=== PATIENT | female | born 1975 | race Caucasian/White ===

== ENCOUNTER 2016-02-18 19:04 | Emergency (ER) | payer MEDICAID, OTHER ==
[~2016-02-18] VITALS: Ht 175.3 cm; Wt 80.0 kg
[~2016-02-18 19:04] MED LIST: BUSP10TA8 PO; IBUP-238 PO; LAMO25 PO; PREN0.01 PO; PROZ40CA PO; VENL75TA91 PO; VIST50CA PO
[2016-02-18 19:06] VITALS: BP 134/76; PULSE 76; RESP 16; TEMP 97.8; O2SAT 100
[2016-02-18 20:21] LABS: BLOOD, URINE NEG (NEG); GLUCOSE,URINE NEG (NEG); KETONE, URINE NEG (NEG); NITRITE,URINE NEG (NEG); SQUAMOUS EPITHELIAL CELL URINE 1 /hpf (0-5); URINE COLOR COLORLESS (YELLW/STRAW)
[2016-02-18 20:24] LABS: COMMENT (UR) CULT NOT INDICATED; CULTURE IF INDICATED CULT NOT INDICATED
[2016-02-18 20:42] VITALS: BP 151/76; PULSE 70; RESP 18; O2SAT 100
--- NOTE | 2016-02-18 20:53 | PD ---
HPI Chief Complaint: Cardiac Complaint Time Seen by Provider: 20:40 Travel History International Travel<30 days: No Contact w/Intl Traveler<30days: No Traveled to known affect area: No History of Present Illness HPI 40yo F with PMH of anxiety presents to the ED with c/o palpitations since 6pm last night. She states it is intermittent and currently not there. Had sensation of tightness in her throat that also went away by itself. Currently denies any fever, cough, chest pain, sob, n/v, abdominal pain, weakness or numbness. PFSH Past Medical History Blood Disorders: No Depression: Yes (TAKES ULTRAM) Cancer: No Cardiovascular Problems: No Diabetes: No Diminished Hearing: No Endocrine: No Genitourinary: No Immune Disorder: No Musculoskeletal: No Neurologic: No Reproductive: No Respiratory: No Seizures: Yes (DRUG RELATED YEARS AGO ) Thyroid Disease: No ?: Not : 4 Para: 2 Miscarriage: 1 Tubal Ligation: Yes Past Surgical History Abdominal Surgery: No Cardiac Surgery: No Ear Surgery: No Endocrine Surgery: No Eye Surgery: No Genitourinary Surgery: No Gynecologic Surgery: No Oral Surgery: No Thoracic Surgery: No Social History Alcohol Use: No Tobacco Use: No Substance Use: No Allergies-Medications (Allergen,Severity, Reaction): Coded Allergies: No Known Allergies (Verified , 02/18/16) Uncoded Allergies: N (Allergy, Unknown, 02/21/08) Reported Meds & Prescriptions Reported Meds & Active Scripts Active Review of Systems Except as stated in HPI: all other systems reviewed are Neg Physical Exam Narrative GENERAL: 40yo F not in distress. SKIN: Warm and dry. HEAD: Atraumatic. Normocephalic. EYES: Pupils equal and round. No scleral icterus. No injection or drainage. ENT: No nasal bleeding or discharge. Mucous membranes pink and moist. Throat: Clear. NECK: Trachea midline. No JVD. CARDIOVASCULAR: Regular rate and rhythm. No murmur appreciated. RESPIRATORY: No accessory muscle use. Clear to auscultation. Breath sounds equal bilaterally. GASTROINTESTINAL: Abdomen soft, non-tender, nondistended. No rebound tenderness or guarding. MUSCULOSKELETAL: No obvious deformities. No clubbing. No cyanosis. No edema. NEUROLOGICAL: Awake and alert. No obvious cranial nerve deficits. Motor grossly within normal limits. Normal speech. PSYCHIATRIC: Appropriate mood and affect; insight and judgment normal. Data Data Last Documented VS Vital Signs Date Time Temp Pulse Resp B/P Pulse Ox O2 Delivery O2 Flow Rate FiO2 02/18/16 22:35 119/75 100 02/18/16 20:42 70 18 Room Air 02/18/16 19:06 97.8 Orders Urinalysis - C+S If Indicated (02/18/16 19:41) Comprehensive Metabolic Panel (02/18/16 20:41) Thyroid Stimulating Hormone (02/18/16 20:41) Complete Blood Count With Diff (02/18/16 20:41) Troponin I (02/18/16 20:41) Ckmb (Isoenzyme) Profile (02/18/16 20:41) Iv Access Insert/Monitor (02/18/16 20:41) ^ [employer] / Telemetry (02/18/16 20:41) Oximetry (02/18/16 20:41) Chest, Single Ap (02/18/16 ) Electrocardiogram (02/18/16 19:54) CKMB (02/18/16 20:45) CKMB% (02/18/16 20:45) Labs Laboratory Tests Test 02/18/16 02/18/16 19:48 20:45 Urine Color COLORLESS Urine Turbidity CLEAR Urine pH 6.0 Urine Specific [place] 1.001 Urine Protein NEG mg/dL Urine Glucose (UA) NEG mg/dL Urine Ketones NEG mg/dL Urine Occult Blood NEG Urine Nitrite NEG Urine Bilirubin NEG Urine Urobilinogen LESS THAN 2.0 MG/DL Urine Leukocyte Esterase NEG Urine RBC LESS THAN 1 /hpf Urine WBC LESS THAN 1 /hpf Urine Squamous Epithelial 1 /hpf Cells Microscopic Urinalysis Comment CULT NOT INDICATED White Blood Count 9.7 TH/MM3 Red Blood Count 3.93 MIL/MM3 Hemoglobin 10.8 GM/DL Hematocrit 32.3 % Mean Corpuscular Volume 82.3 FL Mean Corpuscular Hemoglobin 27.6 PG Mean Corpuscular Hemoglobin 33.5 % Concent Red Cell Distribution Width 15.1 % Platelet Count 359 TH/MM3 Mean Platelet Volume 9.0 FL Neutrophils (%) (Auto) 58.8 % Lymphocytes (%) (Auto) 30.9 % Monocytes (%) (Auto) 6.8 % Eosinophils (%) (Auto) 2.1 % Basophils (%) (Auto) 1.4 % Neutrophils # (Auto) 5.7 TH/MM3 Lymphocytes # (Auto) 3.0 TH/MM3 Monocytes # (Auto) 0.7 TH/MM3 Eosinophils # (Auto) 0.2 TH/MM3 Basophils # (Auto) 0.1 TH/MM3 CBC Comment DIFF FINAL Differential Comment Sodium Level 138 MEQ/L Potassium Level 3.6 MEQ/L Chloride Level 102 MEQ/L Carbon Dioxide Level 29.6 MEQ/L Anion Gap 6 MEQ/L Blood Urea Nitrogen 10 MG/DL Creatinine 0.99 MG/DL Estimat Glomerular Filtration 62 ML/MIN Rate Random Glucose 94 MG/DL Calcium Level 8.8 MG/DL Total Bilirubin 0.2 MG/DL Aspartate Amino Transf 27 U/L (AST/SGOT) Alanine Aminotransferase 28 U/L (ALT/SGPT) Alkaline Phosphatase 57 U/L Total Creatine Kinase 176 U/L Creatine Kinase MB 5.0 NG/ML Troponin I 0.03 NG/ML Total Protein 7.5 GM/DL Albumin 3.9 GM/DL Thyroid Stimulating Hormone 0.647 uIU/ML 3rd Gen [facility] Medical Decision Making Medical Screen Exam Complete: Yes Emergency Medical Condition: Yes Interpretation(s) EKG: NSR 76bpm. Normal axis. No ST segment elevation or depression. Differential Diagnosis Anxiety vs. hyperthyroid vs. dehydration vs. electrolyte abnormality Narrative Course 40yo F with c/o palpitations that have have subsided. Pt's heart rate has been normal in the ED. Labs reviewed, hemoglobin mildly decreased at 10.8. Troponin negative. CXR negative. Pt has no chest pain or sob. UA negative. Pt feels better after being observed in the ED. Return precautions given. Diagnosis Primary Impression: Palpitations Scripts No Active Prescriptions or Reported Meds Melita Bates DO Feb 18, 2016 20:53
--- NOTE | 2016-02-18 21:01 | RADRPT ---
EXAM DATE/TIME: 02/18/2016 20:43 [place] COMPARISON: No previous studies available for comparison. INDICATIONS : Palpitations and chest pains for 2 days. MEDICAL HISTORY : None. SURGICAL HISTORY : None. ENCOUNTER: Initial ACUITY: 1 day PAIN SCORE: 0/10 LOCATION: Bilateral chest FINDINGS: A single view of the chest demonstrates the lungs to be symmetrically aerated without evidence of mas s, infiltrate or effusion. The cardiomediastinal contours are unremarkable. Osseous structures are intact. CONCLUSION: Normal examination. Giovani Carlos MD on February 18, 2016 at 21:00 Board Certified Radiologist. This report was verified electronically.
[2016-02-18 21:18] LABS: AUTOMATED NEUTROPHIL # 5.7 TH/MM3 (1.8-7.7); BASOPHIL # 0.1 TH/MM3 (0-0.2); BASOPHIL % 1.4 % (0.0-2.0); EOSINOPHIL # 0.2 TH/MM3 (0-0.4); EOSINOPHIL % 2.1 % (0.0-4.0); HEMATOCRIT 32.3 % (35.0-46.0); HEMO FLAGS DIFF FINAL; LYMPH % 30.9 % (9.0-44.0); MEAN CELL VOLUME 82.3 FL (80.0-100.0); MEAN CORPUSCULAR HEMOGLOBIN 27.6 PG (27.0-34.0); MEAN CORPUSCULAR HGB CONC 33.5 % (32.0-36.0); MONO % 6.8 % (0.0-8.0); NEUT % 58.8 % (16.0-70.0); PLATELET COUNT 359 TH/MM3 (150-450); RED BLOOD COUNT 3.93 MIL/MM3 (4.00-5.30); RED CELL DISTRIBUTION WIDTH 15.1 % (11.6-17.2); WHITE BLOOD COUNT 9.7 TH/MM3 (4.0-11.0)
[2016-02-18 21:38] LABS: ALT (GPT) 28 U/L (10-53); ANION GAP 6 MEQ/L (5-15); AST (GOT) 27 U/L (15-37); BICARBONATE 29.6 MEQ/L (21.0-32.0); BLOOD UREA NITROGEN 10 MG/DL (7-18); CHLORIDE 102 MEQ/L (98-107); GLOMERULAR FILTRATION RATE 62 ML/MIN (>89); POTASSIUM 3.6 MEQ/L (3.5-5.1); SODIUM (NA) 138 MEQ/L (136-145)
[2016-02-18 21:48] LABS: ALKALINE PHOSPHATASE 57 U/L (45-117); CREATINE KINASE 176 U/L (26-192); TOTAL BILIRUBIN ADULT 0.2 MG/DL (0.2-1.0)
--- NOTE | 2016-02-18 22:16 | PD ---
Physical Exam Date Seen by Provider: Feb 18, 2016 Narrative For full history and physical examination please see previous provider's note. Data Data Last Documented VS Vital Signs Date Time Temp Pulse Resp B/P Pulse Ox O2 Delivery O2 Flow Rate FiO2 02/18/16 20:42 70 18 151/76 100 Room Air 02/18/16 19:06 97.8 Orders Urinalysis - C+S If Indicated (02/18/16 19:41) Comprehensive Metabolic Panel (02/18/16 20:41) Thyroid Stimulating Hormone (02/18/16 20:41) Complete Blood Count With Diff (02/18/16 20:41) Troponin I (02/18/16 20:41) Ckmb (Isoenzyme) Profile (02/18/16 20:41) Iv Access Insert/Monitor (02/18/16 20:41) ^ [employer] / Telemetry (02/18/16 20:41) Oximetry (02/18/16 20:41) Chest, Single Ap (02/18/16 ) Electrocardiogram (02/18/16 19:54) CKMB (02/18/16 20:45) CKMB% (02/18/16 20:45) Labs Laboratory Tests Test 02/18/16 02/18/16 19:48 20:45 Urine Color COLORLESS Urine Turbidity CLEAR Urine pH 6.0 Urine Specific [place] 1.001 Urine Protein NEG mg/dL Urine Glucose (UA) NEG mg/dL Urine Ketones NEG mg/dL Urine Occult Blood NEG Urine Nitrite NEG Urine Bilirubin NEG Urine Urobilinogen LESS THAN 2.0 MG/DL Urine Leukocyte Esterase NEG Urine RBC LESS THAN 1 /hpf Urine WBC LESS THAN 1 /hpf Urine Squamous Epithelial 1 /hpf Cells Microscopic Urinalysis Comment CULT NOT INDICATED White Blood Count 9.7 TH/MM3 Red Blood Count 3.93 MIL/MM3 Hemoglobin 10.8 GM/DL Hematocrit 32.3 % Mean Corpuscular Volume 82.3 FL Mean Corpuscular Hemoglobin 27.6 PG Mean Corpuscular Hemoglobin 33.5 % Concent Red Cell Distribution Width 15.1 % Platelet Count 359 TH/MM3 Mean Platelet Volume 9.0 FL Neutrophils (%) (Auto) 58.8 % Lymphocytes (%) (Auto) 30.9 % Monocytes (%) (Auto) 6.8 % Eosinophils (%) (Auto) 2.1 % Basophils (%) (Auto) 1.4 % Neutrophils # (Auto) 5.7 TH/MM3 Lymphocytes # (Auto) 3.0 TH/MM3 Monocytes # (Auto) 0.7 TH/MM3 Eosinophils # (Auto) 0.2 TH/MM3 Basophils # (Auto) 0.1 TH/MM3 CBC Comment DIFF FINAL Differential Comment Sodium Level 138 MEQ/L Potassium Level 3.6 MEQ/L Chloride Level 102 MEQ/L Carbon Dioxide Level 29.6 MEQ/L Anion Gap 6 MEQ/L Blood Urea Nitrogen 10 MG/DL Creatinine 0.99 MG/DL Estimat Glomerular Filtration 62 ML/MIN Rate Random Glucose 94 MG/DL Calcium Level 8.8 MG/DL Total Bilirubin 0.2 MG/DL Aspartate Amino Transf 27 U/L (AST/SGOT) Alanine Aminotransferase 28 U/L (ALT/SGPT) Alkaline Phosphatase 57 U/L Total Creatine Kinase 176 U/L Creatine Kinase MB 5.0 NG/ML Troponin I 0.03 NG/ML Total Protein 7.5 GM/DL Albumin 3.9 GM/DL Thyroid Stimulating Hormone 0.647 uIU/ML [facility] Gen [facility] Medical Record Reviewed: Yes Supervised Visit with MITRA: Yes Interpretation(s) Laboratory Tests Test 02/18/16 02/18/16 19:48 20:45 Urine Color COLORLESS Urine Turbidity CLEAR Urine pH 6.0 Urine Specific [place] 1.001 Urine Protein NEG mg/dL Urine Glucose (UA) NEG mg/dL Urine Ketones NEG mg/dL Urine Occult Blood NEG Urine Nitrite NEG Urine Bilirubin NEG Urine Urobilinogen LESS THAN 2.0 MG/DL Urine Leukocyte Esterase NEG Urine RBC LESS THAN 1 /hpf Urine WBC LESS THAN 1 /hpf Urine Squamous Epithelial 1 /hpf Cells Microscopic Urinalysis Comment CULT NOT INDICATED White Blood Count 9.7 TH/MM3 Red Blood Count 3.93 MIL/MM3 Hemoglobin 10.8 GM/DL Hematocrit 32.3 % Mean Corpuscular Volume 82.3 FL Mean Corpuscular Hemoglobin 27.6 PG Mean Corpuscular Hemoglobin 33.5 % Concent Red Cell Distribution Width 15.1 % Platelet Count 359 TH/MM3 Mean Platelet Volume 9.0 FL Neutrophils (%) (Auto) 58.8 % Lymphocytes (%) (Auto) 30.9 % Monocytes (%) (Auto) 6.8 % Eosinophils (%) (Auto) 2.1 % Basophils (%) (Auto) 1.4 % Neutrophils # (Auto) 5.7 TH/MM3 Lymphocytes # (Auto) 3.0 TH/MM3 Monocytes # (Auto) 0.7 TH/MM3 Eosinophils # (Auto) 0.2 TH/MM3 Basophils # (Auto) 0.1 TH/MM3 CBC Comment DIFF FINAL Differential Comment Sodium Level 138 MEQ/L Potassium Level 3.6 MEQ/L Chloride Level 102 MEQ/L Carbon Dioxide Level 29.6 MEQ/L Anion Gap 6 MEQ/L Blood Urea Nitrogen 10 MG/DL Creatinine 0.99 MG/DL Estimat Glomerular Filtration 62 ML/MIN Rate Random Glucose 94 MG/DL Calcium Level 8.8 MG/DL Total Bilirubin 0.2 MG/DL Aspartate Amino Transf 27 U/L (AST/SGOT) Alanine Aminotransferase 28 U/L (ALT/SGPT) Alkaline Phosphatase 57 U/L Total Creatine Kinase 176 U/L Creatine Kinase MB 5.0 NG/ML Troponin I 0.03 NG/ML Total Protein 7.5 GM/DL Albumin 3.9 GM/DL Thyroid Stimulating Hormone 0.647 uIU/ML 3rd Gen Vital Signs Date Time Temp Pulse Resp B/P Pulse Ox O2 Delivery O2 Flow Rate FiO2 02/18/16 20:42 70 18 151/76 100 Room Air 02/18/16 19:06 97.8 76 16 134/76 100 Room Air Narrative Course Patient was seen and evaluated by myself and my attending physician, please see my attending physician's note for full history and physical examination. My attending physician reviewed the labs, imaging, EKG. She discussed follow-up plans the patient as well as need to return to emergency department for any new or worsening symptoms. I was asked to place discharge information and the computer due to technical difficulties. Diagnosis Primary Impression: Palpitations Referrals: Primary Care Physician Patient Instructions: General Instructions, Palpitations (ED) Additional Instruction: Follow-up with your primary care provider Avoid caffeine or stimulant intake Maintain adequate fluid intake Return to emergency department for any new or worsening symptoms Med/Other Pt SpecificInfo: No Change to Meds Scripts No Active Prescriptions or Reported Meds Disposition: 01 DISCHARGE HOME Condition: Stable Griselda Ervin Argelia LEE Feb 18, 2016 22:16
[2016-02-18 22:35] VITALS: BP 119/75
--- NOTE | 2016-02-19 22:36 | EKG ---
Date Performed: 02/18/2016 Time Performed: 19:54:01 PTAGE: 40 years EKG: Sinus rhythm WITH SINUS ARRHYTHMIA POSSIBLE RIGHT VENTRICULAR CONDUCTION DELAY BORDERLINE ECG PREVIOUS TRACING : 07/14/2007 22.06 Compared to prior tracing no significant change DOCTOR: Abdias Pollock Interpretating Date/Time 02/19/2016 22:33:14
== END 2016-02-18 22:48 | disposition home or self-care (01) ==
LOC: NEPC 19:04
DX: R00.2 Palpitations (principal); F32.9 Major depressive disorder, single episode, unspecified
CPT/HCPCS: 71010; 80053; 81001; 82550; 82552; 84443; 84484; 85025; 93005